=== PATIENT | female | born 2000 | race Caucasian/White ===

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

== ENCOUNTER 2023-09-05 09:22 | Emergency (ER) | payer OTHER ==
[~2023-09-05] VITALS: Ht 165.1 cm; Wt 64.0 kg
[~2023-09-05 09:22] MED LIST: INDOMETHACIN50 MG PO
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
[2023-09-05 10:29] LABS: BASOPHILS 0.7 % (0-2); EOSINOPHILS 0.9 % (0-6); HEMATOCRIT 40.9 % (35.0-50.0); HEMOGLOBIN 13.8 g/dL (12.0-18.0); LYMPHOCYTES 42.7 % (24-44); MCH 32.2 (27-36); MCHC 33.8 g/dl (30-36); MCV 95.3 fl (81-99); MONOCYTES 4.8 % (0-12); NEUTROPHILS 50.9 % (39-80); PLATELET COUNT 147 K/uL (140-440); RBC 4.29 M/ul (4.3-5.7); RDW 12.4 (10.5-15.0)
[2023-09-05 10:42] LABS: ALBUMIN 4.3 g/dL (3.4-5.0); ALBUMIN/GLOBULIN RATIO 1.43 (1.1-2.4); ANION GAP 14.1 (7-21); BILIRUBIN, TOTAL 0.6 ng/dL (0.2-1.0); BUN/CREATININE RATIO 12.19 (6.0-28.6); CALCIUM 9.4 mg/dL (8.5-10.1); CREATININE, SERUM 0.82 mg/dL (0.55-1.02); POTASSIUM 4.1 mmol/L (3.5-5.1); PROTEIN, TOTAL 7.3 g/dL (6.4-8.2)
[2023-09-05 11:52] LABS: BILIRUBIN, URINE NEGATIVE (negative); BLOOD/HGB, URINE NEGATIVE (Negative); KETONE, URINE NEGATIVE (Negative); LEUK ESTERASE, URINE NEGATIVE (negative); NITRITE, URINE NEGATIVE (negative); PH, URINE 5.5 (5-7)
[2023-09-05 15:26] VITALS: BP 109/74
== END 2023-09-05 15:27 | disposition home or self-care (01) ==
LOC: ED 09:22 → EDSEX 09:23 → ED 09:23
PROVIDERS: Emergency Medicine
DX: R10.32 Left lower quadrant pain (principal); Z79.899 Other long term (current) drug therapy
CPT/HCPCS: 36415; 74177; 80053; 81003; 83690; 84703; 85025; 96375; 96376; 99284-25; J1885; J2405; J7030; Q9967

== ENCOUNTER 2024-05-12 05:17 | Emergency (ER) | payer OTHER ==
[~2024-05-12] VITALS: Ht 165.1 cm; Wt 65.0 kg
--- OUTSIDE RECORDS SUMMARY | 2024-05-12 05:19 | XMS ---
PreManage Notification: SCHUYLER RUELAS Security Manager Desktop Events No recent Security Events currently on file CRITERIA MET - PDMP CARE PROVIDERS Gavi Bernabe Community Health Worker 06/22/2023-Current PHONE: [phone] -, [facility] Dentist: Sales Merchandising Specialist [facility] PHONE: [phone] -Maricarmen- Dentist: Sales Merchandising Specialist [facility] PHONE: [phone] TIMOTHY CALI Physician Textile Colorist Formulator Current PHONE: [phone] CLARISA SCHULER Loan Operations Specialist: Clinical Current PHONE: [phone] [facility]/Center: [facility] Current WORKERS CL[facility] PHONE: [phone] Care Guidelines exist for the following facilities: [facility] ( 11/17/2019 ) [place] [facility] [address] [place] [address] TOTAL 3 NOTE: Visits indicate total known visits. ED/UCC VISIT TRACKING (12 MO.) 05/12/2024 05:18 [facility] TYPE: Emergency COMPLAINT: - CAT BITE RIGHT HAND 09/05/2023 09:23 [facility] TYPE: Emergency COMPLAINT: - ABD PAIN, DIZZINESS DIAGNOSES: - Left lower quadrant pain - Other detention (current) drug therapy 06/15/2023 10:11 [facility] [place] TYPE: Emergency DIAGNOSES: - Benign paroxysmal vertigo, left ear - Other specified disorders of nose and nasal sinuses - Unspecified acute noninfective otitis externa, left ear - POSS SEPSIS INPATIENT VISIT TRACKING (12 MO.) No inpatient visits to display in this time frame [email or web address]
[2024-05-12] MEDS ORDERED: DIPHTH,PERTUSS(ACELL),TET VAC 0.5 ML SYRINGE IM ONE (05:45)
[2024-05-12] MEDS ORDERED: AMOX TR-K CLV1 EAC1 PO (05:45)
[2024-05-12] MEDS ORDERED: AMOXICILLIN/CLAVULANATE K 875 MG HOME.PACK PO ONE (06:00)
[2024-05-12 06:20] VITALS: BP 127/85
== END 2024-05-12 06:20 | disposition home or self-care (01) ==
LOC: ED 05:17
DX: S61.451A Open bite of right hand, initial encounter (principal); W55.01XA Bitten by cat, initial encounter; Z23 Encounter for immunization; Z79.899 Other long term (current) drug therapy
CPT/HCPCS: 90715